=== PATIENT | male | born 1965 | race Caucasian/White ===

== ENCOUNTER 2017-09-18 11:13 | Emergency (ER) | payer OTHER ==
[~2017-09-18] VITALS: Ht 162.6 cm; Wt 78.0 kg
[~2017-09-18 11:13] MED LIST: ATI2I IV; BUS5 PO; GLIPIZIDE5 MG PO; LIPITOR40 MG PO; LISINOPRIL HCTZ1 TA1 PO; METFORMIN1000 M1 PO; PAX20 PO
[2017-09-18 11:50] LABS: BASOPHIL % 0.4 % (0-2); PLATELET COUNT 235 x10^3mcL (130-400); RED CELL DISTRIBUTION WIDTH 13.8 % (11.5-14.5)
[2017-09-18 11:59] LABS: CALCIUM 8.8 mg/dL (8.5-10.1); CARBON DIOXIDE 25.9 mmol/L (21-32); CHLORIDE SERUM 101 mmol/L (98-107); CREATININE SERUM 0.8 mg/dL (0.7-1.3); GFR1 > 60 mL/min; GLUCOSE SERUM 98 mg/dL (74-106); POTASSIUM SERUM 3.6 mmol/L (3.5-5.1); SODIUM SERUM 138 mmol/L (136-145)
[2017-09-18 12:05] LABS: ALKALINE PHOSPHATASE 55 U/L (46-116); ALT/SGPT 31 U/L (16-63); AST/SGOT 14 U/L (15-37); BILIRUBIN TOTAL 1.13 mg/dL (0.20-1.00); HDL CHOLESTEROL 37 mg/dL (40-60); MAGNESIUM 1.8 mg/dL (1.8-2.4); TOTAL PROTEIN, SERUM 7.5 g/dL (6.4-8.2)
[2017-09-18 12:08] LABS: CHOLESTEROL 116 mg/dL (<200)
[2017-09-18 14:00] VITALS: BP 103/73
== END 2017-09-18 14:00 | disposition home or self-care (01) ==
LOC: ED 11:13
PROVIDERS: Emergency Medicine
DX: E86.0 Dehydration (principal); R42 Dizziness and giddiness; D72.1 Eosinophilia; I10 Essential (primary) hypertension; E11.9 Type 2 diabetes mellitus without complications; E78.00 Pure hypercholesterolemia, unspecified
CPT/HCPCS: 36415; 83880; J8597; Q0092; Q0162

== ENCOUNTER 2017-10-02 00:55 | Inpatient (IN) | payer OTHER ==
[~2017-10-02] VITALS: Ht 167.6 cm; Wt 81.2 kg
[2017-10-02 01:31] LABS: PLATELET COUNT 275 x10^3mcL (130-400); RED CELL DISTRIBUTION WIDTH 12.9 % (11.5-14.5)
[2017-10-02 01:34] LABS: CHLORIDE SERUM 102 mmol/L (98-107); GFR1 > 60 mL/min; GLUCOSE SERUM 122 mg/dL (74-106); POTASSIUM SERUM 3.2 mmol/L (3.5-5.1); SODIUM SERUM 136 mmol/L (136-145)
[2017-10-02 01:38] LABS: ALBUMIN 3.8 g/dL (3.4-5.0); ALKALINE PHOSPHATASE 86 U/L (46-116); ALT/SGPT 29 U/L (16-63); AST/SGOT 15 U/L (15-37); BILIRUBIN TOTAL 0.75 mg/dL (0.20-1.00); TOTAL PROTEIN, SERUM 7.3 g/dL (6.4-8.2)
[2017-10-02 01:53] LABS: BAND NEUTROPHIL 3 % (0-10); BASOPHIL 0 % (0-2); MONOCYTE 6 % (0-7); SEGMENTED NEUTROPHILS 27 % (37-75)
[2017-10-02 01:54] LABS: PLATELET MORPHOLOGY PLATELETS NORMAL; rbc morphology (normal/abnorm) NORMAL (NORMAL)
[2017-10-02] MEDS ORDERED: RANITIDINE HYD150 M2 PO (03:05)
[2017-10-02] MEDS ORDERED: CLARITIN10 MG PO (03:05)
[2017-10-02] MEDS ORDERED: PROMETHAZI6.25 MG/5 PO (03:07)
[2017-10-02] MEDS ORDERED: MECLIZINE HYDRO25 M1 PO (03:07)
[2017-10-02] MEDS ORDERED: LORAZEPAM0.5 MG PO (03:08)
[2017-10-02] MEDS ORDERED: PRAVASTATIN SOD40 M1 PO (03:08)
[2017-10-02 04:38] LABS: MAGNESIUM 1.8 mg/dL (1.8-2.4); PHOSPHOROUS 3.5 mg/dL (2.5-4.9)
[2017-10-02 04:42] LABS: CHOLESTEROL/HDL RATIO 4.7
[2017-10-02 04:47] LABS: T3 TOTAL 1.32 ng/mL
[2017-10-02 05:00] LABS: FREE T4 1.23 ng/dL (0.76-1.46); FREE THYROXINE INDEX 3.2 ug/dL (1.4-4.5); T4(THYROXINE) 9.4 ug/dL (4.7-13.3)
[2017-10-02 08:54] VITALS: BP 101/62
[2017-10-02 12:46] LABS: CALCIUM 8.4 mg/dL (8.5-10.1); CARBON DIOXIDE 21.8 mmol/L (21-32); CHLORIDE SERUM 107 mmol/L (98-107); CREATININE SERUM 0.7 mg/dL (0.7-1.3); GFR1 > 60 mL/min; GLUCOSE SERUM 77 mg/dL (74-106); POTASSIUM SERUM 4.6 mmol/L (3.5-5.1); SODIUM SERUM 139 mmol/L (136-145)
[2017-10-02 13:37] VITALS: BP 103/56
[2017-10-02 17:54] VITALS: BP 110/74
[2017-10-02 21:11] LABS: microscopic required? NO
[2017-10-02 21:25] LABS: urine erythrocyte NEGATIVE (NEGATIVE)
[2017-10-02 21:28] VITALS: BP 114/78
[2017-10-03 05:38] VITALS: BP 105/70
[2017-10-03 07:31] LABS: CALCIUM 8.4 mg/dL (8.5-10.1); CARBON DIOXIDE 24.8 mmol/L (21-32); CHLORIDE SERUM 107 mmol/L (98-107); CREATININE SERUM 0.8 mg/dL (0.7-1.3); GFR1 > 60 mL/min; GLUCOSE SERUM 93 mg/dL (74-106); MAGNESIUM 1.9 mg/dL (1.8-2.4); PHOSPHOROUS 3.2 mg/dL (2.5-4.9); POTASSIUM SERUM 4.6 mmol/L (3.5-5.1); SODIUM SERUM 139 mmol/L (136-145)
[2017-10-03 07:57] LABS: PLATELET COUNT 233 x10^3mcL (130-400); RED CELL DISTRIBUTION WIDTH 14.4 % (11.5-14.5)
[2017-10-03 09:23] VITALS: BP 120/78
[2017-10-03 10:30] VITALS: Ht 167.6 cm; Wt 81.2 kg
[2017-10-03 11:30] LABS: BAND NEUTROPHIL 4 % (0-10); MONOCYTE 5 % (0-7); SEGMENTED NEUTROPHILS 34 % (37-75)
[2017-10-03 11:32] LABS: PLATELET MORPHOLOGY PLATELETS NORMAL
[2017-10-03 11:33] LABS: ovalocyte/elliptocyte 1+; rbc morphology (normal/abnorm) ABNORMAL (NORMAL)
[2017-10-03] MEDS ORDERED: ASPIR LOW81 MG PO (12:13)
[2017-10-03 12:20] VITALS: BP 126/89
[2017-10-03] MEDS ORDERED: TOP50 PO (14:48)
[2017-10-03 15:04] VITALS: BP 126/89
== END 2017-10-03 15:40 | disposition home or self-care (01) | DRG 203 ==
LOC: ED 00:55 → DU 04:12
PROVIDERS: Emergency Medicine; Internal Medicine
DX: R07.89 Other chest pain (principal); N17.0 Acute kidney failure with tubular necrosis; I10 Essential (primary) hypertension; E88.81 Metabolic syndrome and other insulin resistance; E11.9 Type 2 diabetes mellitus without complications; E78.00 Pure hypercholesterolemia, unspecified; E87.6 Hypokalemia; F41.9 Anxiety disorder, unspecified; Z79.84 Long term (current) use of oral hypoglycemic drugs; Z82.49 Family history of ischemic heart disease and other diseases of the circulatory system
CPT/HCPCS: 82962; 83880; 84439; J1885; J2765; J7030; Q0092

== ENCOUNTER 2017-10-07 11:47 | Emergency (ER) | payer OTHER ==
[~2017-10-07] VITALS: Ht 167.6 cm; Wt 77.1 kg
[~2017-10-07 11:47] MED LIST changes: +ASPIR LOW81 MG PO; +CLARITIN10 MG PO; +LORAZEPAM0.5 MG PO; +MECLIZINE HYDRO25 M1 PO; +PRAVASTATIN SOD40 M1 PO; +PROMETHAZI6.25 MG/5 PO; +RANITIDINE HYD150 M2 PO; +TOP50 PO
[2017-10-07 14:42] LABS: BASOPHIL % 0.8 % (0-2); PLATELET COUNT 267 x10^3mcL (130-400); RED CELL DISTRIBUTION WIDTH 13.8 % (11.5-14.5)
[2017-10-07 15:25] LABS: microscopic required? NO
[2017-10-07 15:32] LABS: ALBUMIN 4.2 g/dL (3.4-5.0); ALKALINE PHOSPHATASE 59 U/L (46-116); ALT/SGPT 36 U/L (16-63); AMYLASE 95 U/L (25-115); AST/SGOT 14 U/L (15-37); BILIRUBIN TOTAL 0.9 mg/dL (0.20-1.00); CALCIUM 9.4 mg/dL (8.5-10.1); CARBON DIOXIDE 23.7 mmol/L (21-32); CHOLESTEROL 145 mg/dL (<200); CREATININE SERUM 0.9 mg/dL (0.7-1.3); GFR1 > 60 mL/min; GLUCOSE SERUM 87 mg/dL (74-106); LIPASE 139 IU/L (73-393); MAGNESIUM 2.3 mg/dL (1.8-2.4); TOTAL PROTEIN, SERUM 7.9 g/dL (6.4-8.2)
[2017-10-07 15:34] LABS: HDL CHOLESTEROL 34 mg/dL (40-60)
[2017-10-07 15:42] LABS: CHLORIDE SERUM 98 mmol/L (98-107); POTASSIUM SERUM 3.9 mmol/L (3.5-5.1); SODIUM SERUM 135 mmol/L (136-145)
[2017-10-07 15:46] LABS: urine erythrocyte NEGATIVE (NEGATIVE)
[2017-10-07 15:55] LABS: AMPHETAMINE QUAL UR NONE DETECTED (See below)
[2017-10-07 16:41] VITALS: BP 110/79
== END 2017-10-07 16:41 | disposition home or self-care (01) ==
LOC: ED 11:47
PROVIDERS: Emergency Medicine
DX: R53.1 Weakness (principal); I10 Essential (primary) hypertension; E11.9 Type 2 diabetes mellitus without complications; E78.00 Pure hypercholesterolemia, unspecified
CPT/HCPCS: 36415; 82962; 83880; Q0092

== ENCOUNTER 2017-10-14 15:40 | Inpatient (IN) | payer OTHER ==
[~2017-10-14] VITALS: Ht 167.6 cm; Wt 79.1 kg
[2017-10-14 15:43] VITALS: Ht 167.6 cm; Wt 79.1 kg
[2017-10-14 18:24] LABS: BASOPHIL % 0.7 % (0-2); PLATELET COUNT 278 x10^3mcL (130-400); RED CELL DISTRIBUTION WIDTH 14.2 % (11.5-14.5)
[2017-10-14 18:26] LABS: CALCIUM 8.9 mg/dL (8.5-10.1); CARBON DIOXIDE 28.7 mmol/L (21-32); CHLORIDE SERUM 102 mmol/L (98-107); CREATININE SERUM 0.8 mg/dL (0.7-1.3); GFR1 > 60 mL/min; GLUCOSE SERUM 99 mg/dL (74-106); POTASSIUM SERUM 4.1 mmol/L (3.5-5.1); SODIUM SERUM 138 mmol/L (136-145)
[2017-10-14 18:31] LABS: ALBUMIN 4.1 g/dL (3.4-5.0); ALKALINE PHOSPHATASE 64 U/L (46-116); ALT/SGPT 40 U/L (16-63); AST/SGOT 15 U/L (15-37); BILIRUBIN TOTAL 0.8 mg/dL (0.20-1.00); TOTAL PROTEIN, SERUM 7.8 g/dL (6.4-8.2)
[2017-10-14] MEDS ORDERED: METFORMIN HCL1000 MG PO (19:33)
[2017-10-14] MEDS ORDERED: CLARITIN10 MG PO (19:33)
[2017-10-14] MEDS ORDERED: ASPIRIN ADULT L81 M5 PO (19:33)
[2017-10-14] MEDS ORDERED: LORAZEPAM0.5 MG PO (19:34)
[2017-10-14] MEDS ORDERED: TOPROL XL25 MG PO (19:34)
[2017-10-14] MEDS ORDERED: HCTZ/LISINOPRIL1 TAB PO (19:34)
[2017-10-14 21:18] VITALS: BP 112/82
[2017-10-15 05:34] VITALS: BP 105/67
[2017-10-15 06:22] LABS: CALCIUM 8.9 mg/dL (8.5-10.1); CARBON DIOXIDE 29.3 mmol/L (21-32); CHLORIDE SERUM 104 mmol/L (98-107); CREATININE SERUM 0.8 mg/dL (0.7-1.3); GFR1 > 60 mL/min; GLUCOSE SERUM 89 mg/dL (74-106); POTASSIUM SERUM 3.9 mmol/L (3.5-5.1); SODIUM SERUM 140 mmol/L (136-145)
[2017-10-15 06:36] LABS: BASOPHIL % 0.7 % (0-2); PLATELET COUNT 268 x10^3mcL (130-400); RED CELL DISTRIBUTION WIDTH 13.9 % (11.5-14.5)
[2017-10-15 08:47] VITALS: BP 116/76
[2017-10-15 12:05] VITALS: BP 110/75
[2017-10-15 15:05] LABS: MAGNESIUM 2.2 mg/dL (1.8-2.4); PHOSPHOROUS 3.8 mg/dL (2.5-4.9)
[2017-10-15] MEDS ORDERED: NITROGLYCERIN0.4 MG SL (16:00)
[2017-10-15 16:38] VITALS: BP 110/75
[2017-10-15 16:39] VITALS: BP 115/76
== END 2017-10-15 19:01 | disposition home or self-care (01) | DRG 198 ==
LOC: ED 15:40 → DU 19:22
PROVIDERS: Emergency Medicine; Internal Medicine
DX: I20.0 Unstable angina (principal); E11.9 Type 2 diabetes mellitus without complications; M94.0 Chondrocostal junction syndrome [Tietze]; E78.5 Hyperlipidemia, unspecified; E78.00 Pure hypercholesterolemia, unspecified; I10 Essential (primary) hypertension; Z68.27 Body mass index [BMI] 27.0-27.9, adult; Z79.84 Long term (current) use of oral hypoglycemic drugs; Z79.82 Long term (current) use of aspirin; Z79.899 Other long term (current) drug therapy; Z82.49 Family history of ischemic heart disease and other diseases of the circulatory system
CPT/HCPCS: 82962; 83880; 85378; Q0092

== ENCOUNTER 2018-01-19 14:45 | Inpatient (IN) | payer OTHER ==
[~2018-01-19] VITALS: Ht 167.6 cm; Wt 77.6 kg
[~2018-01-19 14:45] MED LIST changes: +ASPIRIN ADULT L81 M5 PO; +HCTZ/LISINOPRIL1 TAB PO; +METFORMIN HCL1000 MG PO; +NITROGLYCERIN0.4 MG SL; +TOPROL XL25 MG PO
[2018-01-19 15:31] LABS: BASOPHIL % 0.5 % (0-2); PLATELET COUNT 258 x10^3mcL (130-400); RED CELL DISTRIBUTION WIDTH 12.9 % (11.5-14.5)
[2018-01-19 15:38] LABS: CALCIUM 8.8 mg/dL (8.5-10.1); CARBON DIOXIDE 25.1 mmol/L (21-32); CHLORIDE SERUM 103 mmol/L (98-107); CREATININE SERUM 1.2 mg/dL (0.7-1.3); GFR1 > 60 mL/min; GLUCOSE SERUM 115 mg/dL (74-106); SODIUM SERUM 136 mmol/L (136-145)
[2018-01-19] MEDS ORDERED: NORVASC2.5 MG PO (18:00)
[2018-01-19] MEDS ORDERED: METFORMIN HYDR500 M1 PO (18:01)
[2018-01-19] MEDS ORDERED: I20 PO (18:01)
[2018-01-19 18:36] VITALS: BP 126/83
[2018-01-19 19:01] LABS: MAGNESIUM 1.9 mg/dL (1.8-2.4); PHOSPHOROUS 3.8 mg/dL (2.5-4.9)
[2018-01-19 19:02] LABS: CHOLESTEROL/HDL RATIO 3.8
[2018-01-19 19:06] LABS: T3 TOTAL 1.12 ng/mL
[2018-01-19 19:09] LABS: FREE T4 0.99 ng/dL (0.76-1.46); FREE THYROXINE INDEX 2.4 ug/dL (1.4-4.5); T4(THYROXINE) 7.1 ug/dL (4.7-13.3)
[2018-01-20 05:48] VITALS: BP 106/72
[2018-01-20 07:06] LABS: BASOPHIL % 1.3 % (0-2); PLATELET COUNT 236 x10^3mcL (130-400); RED CELL DISTRIBUTION WIDTH 13.9 % (11.5-14.5)
[2018-01-20 08:20] LABS: CARBON DIOXIDE 25 mmol/L (21-32); CHLORIDE SERUM 104 mmol/L (98-107); CREATININE SERUM 0.9 mg/dL (0.7-1.3); GFR1 > 60 mL/min; GLUCOSE SERUM 94 mg/dL (74-106); POTASSIUM SERUM 3.7 mmol/L (3.5-5.1); SODIUM SERUM 139 mmol/L (136-145)
[2018-01-20 08:21] LABS: PHOSPHOROUS 4.6 mg/dL (2.5-4.9)
[2018-01-20 08:24] VITALS: BP 120/77
[2018-01-20 11:57] VITALS: BP 113/74
[2018-01-20 16:26] VITALS: BP 113/78
[2018-01-20 21:00] VITALS: BP 119/82
[2018-01-21 05:46] VITALS: BP 116/52
[2018-01-21 07:15] LABS: CALCIUM 8.6 mg/dL (8.5-10.1); CARBON DIOXIDE 29.3 mmol/L (21-32); CHLORIDE SERUM 106 mmol/L (98-107); CREATININE SERUM 0.9 mg/dL (0.7-1.3); GFR1 > 60 mL/min; GLUCOSE SERUM 85 mg/dL (74-106); PHOSPHOROUS 4.3 mg/dL (2.5-4.9); SODIUM SERUM 140 mmol/L (136-145)
[2018-01-21 08:22] LABS: PLATELET COUNT 235 x10^3mcL (130-400); RED CELL DISTRIBUTION WIDTH 13.8 % (11.5-14.5)
[2018-01-21 09:16] VITALS: BP 107/75
[2018-01-21 11:47] LABS: BAND NEUTROPHIL 2 % (0-10); BASOPHIL 0 % (0-2); MONOCYTE 7 % (0-7); PLATELET MORPHOLOGY PLATELETS NORMAL; SEGMENTED NEUTROPHILS 34 % (37-75)
[2018-01-21 12:06] VITALS: BP 102/72
[2018-01-21] MEDS ORDERED: AMOXICILLIN500 MG PO (14:31)
[2018-01-21] MEDS ORDERED: CLARITHROMYCIN500 M1 PO (14:31)
[2018-01-21] MEDS ORDERED: GOOD SENSE OMEP20 MG PO (14:32)
[2018-01-21] MEDS ORDERED: AMITRIPTYLINE H10 MG PO (14:33)
[2018-01-21 14:40] VITALS: BP 102/72
== END 2018-01-21 15:32 | disposition home or self-care (01) | DRG 241 ==
LOC: ED 14:45 → DU 17:49
PROVIDERS: Emergency Medicine; Internal Medicine; Internal Medicine Gastroenterology
PROC: 0DB68ZX Excision of Stomach, Via Natural or Artificial Opening Endoscopic, Diagnostic (ICD-10-PCS; principal; 2018-01-21 10:30)
DX: K29.60 Other gastritis without bleeding (principal); K26.9 Duodenal ulcer, unspecified as acute or chronic, without hemorrhage or perforation; E11.9 Type 2 diabetes mellitus without complications; I10 Essential (primary) hypertension; E78.5 Hyperlipidemia, unspecified; Z79.82 Long term (current) use of aspirin; Z79.84 Long term (current) use of oral hypoglycemic drugs; E78.00 Pure hypercholesterolemia, unspecified; Z82.49 Family history of ischemic heart disease and other diseases of the circulatory system; F41.9 Anxiety disorder, unspecified
CPT/HCPCS: 43235; 82962; 83880; 84439; 85378; C9113; J1200; J1610; J1885; J2250; J2310; J3010; J3490; J7030; Q0092

== ENCOUNTER 2018-05-24 09:10 | Emergency (ER) | payer OTHER ==
[~2018-05-24] VITALS: Ht 167.6 cm; Wt 78.9 kg
[~2018-05-24 09:10] MED LIST changes: +AMITRIPTYLINE H10 MG PO; +AMOXICILLIN500 MG PO; +CLARITHROMYCIN500 M1 PO; +GOOD SENSE OMEP20 MG PO; +I20 PO; +METFORMIN HYDR500 M1 PO; +NORVASC2.5 MG PO
[2018-05-24 13:58] VITALS: BP 110/68
== END 2018-05-24 13:58 | disposition home or self-care (01) ==
LOC: ED 09:10
DX: M62.838 Other muscle spasm (principal); G44.209 Tension-type headache, unspecified, not intractable; E11.9 Type 2 diabetes mellitus without complications; I10 Essential (primary) hypertension; E78.00 Pure hypercholesterolemia, unspecified
CPT/HCPCS: 82962; J1100; J1885; Q0162

== ENCOUNTER 2019-02-15 08:59 | Emergency (ER) | payer OTHER ==
[~2019-02-15] VITALS: Ht 165.1 cm; Wt 80.7 kg
[2019-02-15 09:06] VITALS: Ht 165.1 cm; Wt 80.7 kg
[2019-02-15 10:59] LABS: CHLORIDE SERUM 101 mmol/L (98-107); CREATININE SERUM 0.9 mg/dL (0.7-1.3); GFR1 > 60 mL/min; GLUCOSE SERUM 139 mg/dL (74-106); POTASSIUM SERUM 4.7 mmol/L (3.5-5.1); SODIUM SERUM 137 mmol/L (136-145)
[2019-02-15 11:00] LABS: BASOPHIL % 0.5 % (0-2); PLATELET COUNT 297 x10^3mcL (130-400); RED CELL DISTRIBUTION WIDTH 14.4 % (11.5-14.5)
[2019-02-15 11:04] LABS: ALBUMIN 4.1 g/dL (3.4-5.0); ALKALINE PHOSPHATASE 74 U/L (46-116); ALT/SGPT 54 U/L (16-63); AST/SGOT 25 U/L (15-37); LIPASE 103 IU/L (73-393); TOTAL PROTEIN, SERUM 8.1 g/dL (6.4-8.2)
[2019-02-15 13:01] VITALS: BP 125/77
== END 2019-02-15 13:01 | disposition home or self-care (01) ==
LOC: ED 08:59
PROVIDERS: Emergency Medicine
DX: R10.13 Epigastric pain (principal); R11.2 Nausea with vomiting, unspecified; M79.10 Myalgia, unspecified site; I10 Essential (primary) hypertension; E11.9 Type 2 diabetes mellitus without complications; E78.00 Pure hypercholesterolemia, unspecified
CPT/HCPCS: 36415; Q0092